=== PATIENT | female | born 1965 | race Caucasian/White ===

== ENCOUNTER 2017-08-27 19:04 | Emergency (ER) | payer MEDICARE, OTHER ==
[2017-08-27] MEDS: HYDROmorphONE 2 MG/ML SYG IM (19:19)
[2017-08-27] MEDS: ONDANSETRON (ODT) 4 MG TAB ODT (19:19)
[2017-08-27] MEDS: LORAZEPAM 2 MG INJ IM (19:20)
[2017-08-27] MEDS: HYDROCODONE/APAP (10/325) TAB PO (21:22)
== END 2017-08-27 21:38 | disposition home or self-care (01) ==
LOC: E/R 19:04
DX: S63.104A Unspecified dislocation of right thumb, initial encounter (principal); I10 Essential (primary) hypertension; V89.2XXA Person injured in unspecified motor-vehicle accident, traffic, initial encounter
CPT/HCPCS: 26641; 71250; 73090-RT; 73130-RT; 74176; 96372; 99285-25